=== PATIENT | male | born 1940 | race Caucasian/White ===

== ENCOUNTER 2016-06-11 03:17 | Emergency (ER) | payer MEDICARE ==
[~2016-06-11] VITALS: Ht 167.6 cm; Wt 100.0 kg
[~2016-06-11 03:17] MED LIST: ALBU1AER INH; ALBU8I; DEXA4TAB PO; DILT360C12 PO; IBUP800 PO; LEVO100T4 PO; MAXZ25; MONT10TA2 PO; OMPR20CCR PO; OXYCTAB PO; ST J81CH PO; TRAM50TA PO; [UNRECOGNIZED DRUG - CODE] PO
[2016-06-11 03:22] VITALS: BP 189/93; PULSE 73; RESP 16; TEMP 98; O2SAT 97
--- NOTE | 2016-06-11 04:02 | PD ---
HPI Chief Complaint: Musculoskeletal Complaint Time Seen by Provider: 03:48 Travel History International Travel<30 days: No Contact w/Intl Traveler<30days: No Traveled to known affect area: No History of Present Illness HPI 76-year-old man, presents emergent arm worsening left leg pain and swelling especially around the lower leg and ankle. Symptoms started about 4 days ago after he drove down from [place]. He states he was stopping pretty regularly while driving. Worsening pain and swelling through the night tonight so he came into the emergency department. No history of previous similar symptoms. Does take a water pill every day. Has some trouble with allergies. Over the past several months he settled the worsening exercise tolerance. He has a bunch of test, his heart that were negative. He is due to follow-up with a gas truck driver. They will return to [place] in 2 days. History Past Medical History Narrative Medical Hypertension Allergies "Touch of asthma" Tetanus Vaccination: Unknown Social History Alcohol Use: No Tobacco Use: No Allergies-Medications (Allergen,Severity, Reaction): Coded Allergies: Benadryl (Verified Allergy, Severe, 06/11/16) Lisinopril (Verified Allergy, Severe, ANAPHYLAXIS, 06/11/16) Penicillin (Verified Allergy, Severe, 06/11/16) Sulfa (Verified Allergy, Severe, 06/11/16) Tylenol (Verified Allergy, Severe, 06/11/16) Reported Meds & Prescriptions Reported Meds & Active Scripts Active Reported Proair Hfa 8.5 GM Inh (Albuterol Sulfate) 90 Mcg/Act Aer 2 Puff INH Q4-6H PRN 108 mcg/actuation Potassium Gluconate 595 Mg Tab 1 Tab PO DAILY Dicyclomine (Dicyclomine HCl) 20 Mg Tab 20 Mg PO QID Montelukast (Montelukast Sodium) 10 Mg Tab 10 Mg PO HS Furosemide 40 Mg Tab 40 Mg PO DAILY Omeprazole 20 Mg Tab 20 Mg PO DAILY Fexofenadine (Fexofenadine HCl) 180 Mg Tab 180 Mg PO DAILY Clonidine (Clonidine HCl) 0.3 Mg Tab 0.3 Mg PO BID Levothyroxine (Levothyroxine Sodium) 100 Mcg Tab 100 Mcg PO DAILY Review of Systems Except as stated in HPI: all other systems reviewed are Neg Physical Exam Narrative GENERAL: Well-appearing older gentleman, no acute distress. SKIN: Warm and dry. HEAD: Atraumatic. Normocephalic. CARDIOVASCULAR: Regular rate and rhythm. No murmur appreciated. RESPIRATORY: No accessory muscle use. Clear to auscultation. Breath sounds equal bilaterally. GASTROINTESTINAL: Abdomen soft, non-tender, nondistended. Hepatic and splenic margins not palpable. MUSCULOSKELETAL: No obvious deformities. Edema in the left lower extremity, especially about the distal calf and ankle. There is some pitting edema in the ankle. There is warmth throughout the lower leg. Pulses are easily palpable. Good capillary refill. There is no obvious calf tenderness or calf swelling. NEUROLOGICAL: Awake and alert. No obvious cranial nerve deficits. Motor grossly within normal limits. Normal speech. Data Data Last Documented VS Vital Signs Date Time Temp Pulse Resp B/P Pulse Ox O2 Delivery O2 Flow Rate FiO2 06/11/16 05:06 68 18 188/88 96 Room Air 06/11/16 03:22 98.0 Orders Complete Blood Count With Diff (06/11/16 03:58) Comprehensive Metabolic Panel (06/11/16 03:58) Act Partial Throm Time (Ptt) (06/11/16 03:58) Prothrombin Time / Inr (Pt) (06/11/16 03:58) Iv Access Insert/Monitor (06/11/16 03:58) Us Leg Venous Doppler (06/11/16 ) Labs Laboratory Tests Test 06/11/16 04:00 White Blood Count 10.5 TH/MM3 Red Blood Count 4.83 MIL/MM3 Hemoglobin 14.6 GM/DL Hematocrit 42.5 % Mean Corpuscular Volume 88.1 FL Mean Corpuscular Hemoglobin 30.2 PG Mean Corpuscular Hemoglobin 34.3 % Concent Red Cell Distribution Width 13.8 % Platelet Count 246 TH/MM3 Mean Platelet Volume 7.9 FL Neutrophils (%) (Auto) 73.2 % Lymphocytes (%) (Auto) 14.8 % Monocytes (%) (Auto) 9.4 % Eosinophils (%) (Auto) 0.9 % Basophils (%) (Auto) 1.7 % Neutrophils # (Auto) 7.7 TH/MM3 Lymphocytes # (Auto) 1.6 TH/MM3 Monocytes # (Auto) 1.0 TH/MM3 Eosinophils # (Auto) 0.1 TH/MM3 Basophils # (Auto) 0.2 TH/MM3 CBC Comment AUTO DIFF Differential Comment AUTO DIFF CONFIRMED Platelet Estimate NORMAL Platelet Morphology Comment NORMAL Prothrombin Time 11.3 SEC Prothromb Time International 1.0 RATIO Ratio Activated Partial 27.7 SEC Thromboplast Time Sodium Level 138 MEQ/L Potassium Level 3.9 MEQ/L Chloride Level 102 MEQ/L Carbon Dioxide Level 29.3 MEQ/L Anion Gap 7 MEQ/L Blood Urea Nitrogen 13 MG/DL Creatinine 1.29 MG/DL Estimat Glomerular Filtration 54 ML/MIN Rate Random Glucose 129 MG/DL Calcium Level 8.5 MG/DL Total Bilirubin 0.6 MG/DL Aspartate Amino Transf 31 U/L (AST/SGOT) Alanine Aminotransferase 33 U/L (ALT/SGPT) Alkaline Phosphatase 112 U/L Total Protein 7.3 GM/DL Albumin 3.3 GM/DL [facility] Medical Decision Making Medical Screen Exam Complete: Yes Emergency Medical Condition: Yes Interpretation(s) LABS: CBC is unremarkable. CMP is unremarkable. Coags are unremarkable. Ultrasound negative for DVT. Differential Diagnosis DVT, cellulitis, dependent edema, other Narrative Course Medical decision making INITIAL: This a 76-year-old man who presents emergent problem before leg swelling. Suspect DVT, possible cellulitis. He said vein stripping in both legs in the past. He may have asymmetric dependent edema but I think this is much less likely given the warmth and erythema. We'll check labs, ultrasound, reassess. Diagnosis Primary Impression: Cellulitis of left lower extremity Additional Instructions: Take Keflex as prescribed. Keep leg elevated above your heart to reduce swelling. Return to the emergency department for any worsening pain redness swelling fevers or any other new or worsening symptoms. Med/Other Pt SpecificInfo: Prescription(s) given Scripts Clindamycin 300 Mg [id number] Mg PO Q6H 7 Days Prov:Reagan Castillo MD 06/11/16 Disposition: 01 DISCHARGE HOME Condition: Stable Reagan Castillo MD Jun 11, 2016 04:02
[2016-06-11] MEDS ORDERED: LEVO100T5 PO (04:04)
[2016-06-11] MEDS ORDERED: OMEP20TA PO (04:04)
[2016-06-11] MEDS ORDERED: MONT10TA4 PO (04:04)
[2016-06-11] MEDS ORDERED: POTA595T PO (04:04)
[2016-06-11] MEDS ORDERED: ALBUAER3 INH (04:04)
[2016-06-11] MEDS ORDERED: CLON0.3T PO (04:04)
[2016-06-11] MEDS ORDERED: FURO40TA PO (04:04)
[2016-06-11] MEDS ORDERED: FEXO180T PO (04:04)
[2016-06-11] MEDS ORDERED: DICY20TA10 PO (04:04)
[2016-06-11 04:17] LABS: AUTOMATED NEUTROPHIL # 7.7 TH/MM3 (1.8-7.7); BASOPHIL # 0.2 TH/MM3 (0-0.2); BASOPHIL % 1.7 % (0.0-2.0); EOSINOPHIL # 0.1 TH/MM3 (0-0.4); EOSINOPHIL % 0.9 % (0.0-4.0); HEMATOCRIT 42.5 % (39.0-51.0); LYMPH % 14.8 % (9.0-44.0); LYMPHOCYTE # 1.6 TH/MM3 (1.0-4.8); MEAN CELL VOLUME 88.1 FL (80.0-100.0); MEAN CORPUSCULAR HEMOGLOBIN 30.2 PG (27.0-34.0); MEAN CORPUSCULAR HGB CONC 34.3 % (32.0-36.0); MONO % 9.4 % (0.0-8.0); NEUT % 73.2 % (16.0-70.0); PLATELET COUNT 246 TH/MM3 (150-450); RED BLOOD COUNT 4.83 MIL/MM3 (4.50-5.90); RED CELL DISTRIBUTION WIDTH 13.8 % (11.6-17.2); WHITE BLOOD COUNT 10.5 TH/MM3 (4.0-11.0)
[2016-06-11 04:19] LABS: HEMO FLAGS AUTO DIFF
[2016-06-11 04:26] LABS: APTT (PATIENT) 27.7 SEC (24.3-30.1); PROTHROMBIN TIME - PATIENT 11.3 SEC (9.8-11.6)
[2016-06-11 04:32] LABS: ALKALINE PHOSPHATASE 112 U/L (45-117); TOTAL BILIRUBIN ADULT 0.6 MG/DL (0.2-1.0)
[2016-06-11 04:35] LABS: ALT (GPT) 33 U/L (12-78); ANION GAP 7 MEQ/L (5-15); AST (GOT) 31 U/L (15-37); BICARBONATE 29.3 MEQ/L (21.0-32.0); BLOOD UREA NITROGEN 13 MG/DL (7-18); CHLORIDE 102 MEQ/L (98-107); GLOMERULAR FILTRATION RATE 54 ML/MIN (>89); POTASSIUM 3.9 MEQ/L (3.5-5.1); SODIUM (NA) 138 MEQ/L (136-145)
[2016-06-11 05:02] LABS: PLATELET ESTIMATE SMEAR NORMAL (NORMAL); PLATELET MORPHOLOGY NORMAL (NORMAL); SCAN/DIFF AUTO DIFF CONFIRMED
[2016-06-11 05:06] VITALS: BP 188/88; PULSE 68; RESP 18; O2SAT 96
--- NOTE | 2016-06-11 05:17 | RADRPT ---
EXAM DATE/TIME: 06/11/2016 04:48 [facility] COMPARISON: No previous studies available for comparison. INDICATIONS : Left leg pain and swelling. MEDICAL HISTORY : Hypertension. Hypothyroidism. Asthma. SURGICAL HISTORY : Laser surgery, legs. ENCOUNTER: Initial ACUITY: 1 day PAIN SCORE: 3/10 LOCATION: Left leg. TECHNIQUE: Venous ultrasound of the leg was performed from the inguinal ligament to the proximal calf. Real-maritza e, color Doppler and spectral tracing, compression and augmentation techniques were used. FINDINGS: There is normal compressibility of the deep venous system from the inguinal region to the proximal ca lf. No echogenic clot is seen in the lumen of the common femoral, femoral, popliteal, and posterior tibial veins. There is a normal response of the venous system to proximal and distal augmentation an d respiration. CONCLUSION: No evidence of DVT. Tapan Villarreal MD on June 11, 2016 at 5:14 Board Certified Radiologist. This report was verified electronically.
[2016-06-11] MEDS ORDERED: CLIN1CAP6 PO (05:31)
[2016-06-11 05:44] VITALS: BP 172/85
== END 2016-06-11 06:14 | disposition home or self-care (01) ==
LOC: NEPE 03:17
DX: L03.116 Cellulitis of left lower limb (principal); M79.605 Pain in left leg; I10 Essential (primary) hypertension
CPT/HCPCS: 80053; 85025; 85610; 85730; 93971